=== PATIENT | male | born 1980 | race African-American/Black ===

== ENCOUNTER 2019-06-05 10:12 | Emergency (ER) | payer MEDICAID ==
--- NOTE | 2019-06-05 13:19 | ED Physician Chart ---
ED Chief Complaint/HPI - Patient Information Date Seen:: 06/05/19 Time Seen:: 10:30 Chief Complaint:: need to have blood pressure rx Allergies:: Allergies Allergy/AdvReac Type Severity Reaction Status Date / Time No Known Allergies Allergy Verified 08/16/16 10:03 Vitals:: Vital Signs - 8 hr 06/05/19 06/05/19 10:26 10:40 Temp 98.5 F 99.5 F HR 69 98 RR 21 18 BP 179/92 170/92 O2 Sat % 100 98 Review:: Nurse's Note Reviewed ED Review of Systems - Review of Systems General/Constitutional: No fever Skin: No skin lesions Head: No headache Eyes: No loss of vision ENT: No earache Neck: No neck pain Cardio Vascular: No chest pain Pulmonary: No SOB GI: No nausea, No vomiting G/U: No dysuria Musculoskeletal: No bone or joint pain Endocrine: No polyuria Hematopoietic: No bruising Allergic/Immuno: No urticaria Neurological: No syncope ED Past Medical History - Past Medical History Past Medical History: HTN Family Medical History - Family Member Mother History Unknown: Yes Ethnicity: Non- Living Status: Still Living Hx Family Cancer: No Hx Family Coronary Artery Disease: No Hx Family Congestive Heart Failure: No Hx Family Hypertension: Yes Hx Family Stroke: No Hx Family Diabetes: No Hx Family Seizures: No Hx Family Dementia: No Hx Family AIDS: No Hx Family HIV: No Hx Family COPD: No Hx Family Hepatitis: No Hx Family Psychiatric Problems: No Hx Family Tuberculosis: No ED Physical Exam - Physical Examination General/Constitutional: Awake, Well-developed, well-nourished, Alert, No distress, GCS 15, Non-toxic appearing, Ambulatory Head: Atraumatic Eyes: Lids, conjuctiva normal Skin: No rash (tatoos) ENMT: External ears, nose nl Neck: Nontender Respiratory: Nl effort/Exclusion Cardio Vascular: RRR GI: No tenderness/rebounding/guarding : No CVA tenderness Extremities: No tenderness or effusion Neuro/Psych: Alert/oriented Misc: Normal back ED Assessment - Assessment General Assessment: htn no meds lisinopril chlorothalidone given ED Septic Shock - . Is Septic Shock (SBP<90, OR Lactate>4 mmol\L) present?: No - <6hrs of presentation: Vital Signs: Vital Signs - 8 hr 06/05/19 06/05/19 10:26 10:40 Temp 98.5 F 99.5 F HR 69 98 RR 21 18 BP 179/92 170/92 O2 Sat % 100 98 ED Reassessment (Disposition) - Reassessment Reassessment Condition:: Unchanged (take med see limit salt)
== END 2019-06-05 11:05 | disposition home or self-care (01) ==
LOC: ER 10:12
DX: I10 Essential (primary) hypertension (principal)
CPT/HCPCS: Z7502